=== PATIENT | female | born 1975 | race Caucasian/White ===

== ENCOUNTER 2016-06-22 10:33 | Emergency (ER) | payer BC ==
--- NOTE | 2016-06-22 11:21 | DIAGNOSTIC IMAGING REPORT ---
PROCEDURE: XR FOOT 3 VIEWS - LEFT INDICATION: TRAUMA/INJURY TECHNIQUE: Three views of the left foot. COMPARISON: None. FINDINGS: Normal mineralization. No fractures. Moderate sized plantar calcaneal spur. Normal osseous alignment. No suspicious soft-tissue calcification or radiodense foreign bodies. IMPRESSION: 1. Normal left foot.
--- NOTE | 2016-06-22 11:52 | ED ORDER SUMMARY ---
..... Patient: SOPHIA LANDAVERDE OrderSheet [facility] VisitID: [id number] [address] [place] [address] 41y, F Registration Date/Time: 06/22/2016 ORDER SHEET Weight: 136.0 kg (stated) Allergies: Amoxicillin GENERAL ORDERS: Foot 3V Left Urgent (10:56 06/22/2016 Buster AGUAYO) (Ack 10:58 Neha) (11:48 Dusty) MEDICATION ORDERS: Tdap IM 0.5 mL (NOW) (10:56 06/22/2016 Buster AGUAYO) (Ack 10:59 LWhalen R.N.) (11:04 LWhalen R.N.) IV FLUIDS: ORDER SHEET NOTES: [Electronically signed by Maris Heard R.N. (19:16 06/23/2016)] [Electronically signed by Jason Washington MD (23:14 06/23/2016)] [Electronically locked/signed by Maris Heard R.N. (19:16 06/23/2016)]
--- NOTE | 2016-06-22 11:52 | ED CLINICAL REPORT ---
Clinical Report - Physicians/Mid Levels [facility] [address] [place] [address] 06/22/2016 10:36 Patient: SOPHIA LANDAVERDE Time Seen: 10:53. Arrived- By private vehicle. Historian- patient. HISTORY OF PRESENT ILLNESS Chief Complaint: Injury to the left foot. The injury happened last night. Occurred at home. ( MMs. Kelley was ascending a ladder when she struck her left foot on the rungsof a ladder. She was painting at home.). Patient is experiencing mild pain. No other injury. REVIEW OF SYSTEMS The patient complains of pain on weight bearing. No swelling, tingling, weakness, numbness or suspected foreign body. No skin laceration. PAST HISTORY PROBLEMS: no known problems. ADDITIONAL SURGERIES: Bilateral Tubal Ligation. C section . Cholecystectomy. Right knee. [place] teeth . ADDITIONAL NOTES The nursing notes have been reviewed. PHYSICAL EXAM Vital Signs: 06/22/2016 12:13 BP: 140/72. HR: 98. RR: 20. O2 saturation: 97%. Temp: 98.6 F. 06/22/2016 10:44 BP: 147/76. HR: 108. RR: 18. O2 saturation: 97%. Temp: 98.4 F. Extremities: Left dorsal foot: moderate tenderness of the distal aspect aspect of the dorsal foot. No erythema, swelling, laceration, ecchymosis or deformity. Extremities otherwise negative. Neuro, Vascular and Tendons: Vascular status intact. Sensation intact. Motor intact. LABS, X-RAYS, AND EKG Rt Foot X-ray: (PROCEDURE: XR FOOT 3 VIEWS - LEFT INDICATION: TRAUMA/INJURY TECHNIQUE: Three views of the left foot. COMPARISON: None. FINDINGS: Normal mineralization. No fractures. Moderate sized plantar calcaneal spur. Normal osseous alignment. No suspicious soft-tissue calcification or radiodense foreign bodies. IMPRESSION: 1. Normal left foot. Electronically Final signed by:Radhika Encarnacion MD 06/22/2016 11:20:52 AM). The X-rays were interpreted by the radiologist and contemporaneously by me. PROGRESS AND PROCEDURES Course of Care: This injury did not require a Tdap but the patient was due and agreed to be immunized. Pt is able to ambulate with her own orthopedic walking boot. Disposition: Discharged. CLINICAL IMPRESSION Sprain of the metatarsophalangeal joint of the left 2nd toe, 3rd toe, 4th toe and 5th toe. INSTRUCTIONS Apply ice. Elevate affected areas above chest level. (TYLENOL OR IBUPROFEN LIMIT ACTIVITIES FOR COMFORT USE YOUR ORTHOPEDIC WALKING BOOT.). Follow-up: Follow up with your doctor in ten days if not well. (Electronically signed by Jason Washington MD 06/23/2016 23:14)
--- NOTE | 2016-06-22 11:52 | ED CLINICAL REPORT ---
Clinical Report - Physicians/Mid Levels [facility] [address] [place] [address] 06/22/2016 10:36 Patient: SOPHIA LANDAVERDE Time Seen: 10:53. Arrived- By private vehicle. Historian- patient. HISTORY OF PRESENT ILLNESS Chief Complaint: Injury to the left foot. The injury happened last night. Occurred at home. ( MMs. Kelley was ascending a ladder when she struck her left foot on the rungsof a ladder. She was painting at home.). Patient is experiencing mild pain. No other injury. REVIEW OF SYSTEMS The patient complains of pain on weight bearing. No swelling, tingling, weakness, numbness or suspected foreign body. No skin laceration. PAST HISTORY PROBLEMS: no known problems. ADDITIONAL SURGERIES: Bilateral Tubal Ligation. C section . Cholecystectomy. Right knee. [place] teeth . ADDITIONAL NOTES The nursing notes have been reviewed. PHYSICAL EXAM Vital Signs: 06/22/2016 12:13 BP: 140/72. HR: 98. RR: 20. O2 saturation: 97%. Temp: 98.6 F. 06/22/2016 10:44 BP: 147/76. HR: 108. RR: 18. O2 saturation: 97%. Temp: 98.4 F. Extremities: Left dorsal foot: moderate tenderness of the distal aspect aspect of the dorsal foot. No erythema, swelling, laceration, ecchymosis or deformity. Extremities otherwise negative. Neuro, Vascular and Tendons: Vascular status intact. Sensation intact. Motor intact. LABS, X-RAYS, AND EKG Rt Foot X-ray: (PROCEDURE: XR FOOT 3 VIEWS - LEFT INDICATION: TRAUMA/INJURY TECHNIQUE: Three views of the left foot. COMPARISON: None. FINDINGS: Normal mineralization. No fractures. Moderate sized plantar calcaneal spur. Normal osseous alignment. No suspicious soft-tissue calcification or radiodense foreign bodies. IMPRESSION: 1. Normal left foot. Electronically Final signed by:Radhika Encarnacion MD 06/22/2016 11:20:52 AM). The X-rays were interpreted by the radiologist and contemporaneously by me. PROGRESS AND PROCEDURES Course of Care: This injury did not require a Tdap but the patient was due and agreed to be immunized. Pt is able to ambulate with her own orthopedic walking boot. Disposition: Discharged. CLINICAL IMPRESSION Sprain of the metatarsophalangeal joint of the left 2nd toe, 3rd toe, 4th toe and 5th toe. INSTRUCTIONS Apply ice. Elevate affected areas above chest level. (TYLENOL OR IBUPROFEN LIMIT ACTIVITIES FOR COMFORT USE YOUR ORTHOPEDIC WALKING BOOT.). Follow-up: Follow up with your doctor in ten days if not well. (Electronically signed by Jason Washington MD 06/23/2016 23:14)
--- NOTE | 2016-06-22 11:52 | ED ORDER SUMMARY ---
..... Patient: SOPHIA LANDAVERDE OrderSheet [facility] VisitID: [id number] [address] [place] [address] 41y, F Registration Date/Time: 06/22/2016 ORDER SHEET Weight: 136.0 kg (stated) Allergies: Amoxicillin GENERAL ORDERS: Foot 3V Left Urgent (10:56 06/22/2016 Buster AGUAYO) (Ack 10:58 Neha) (11:48 Dusty) MEDICATION ORDERS: Tdap IM 0.5 mL (NOW) (10:56 06/22/2016 Buster AGUAYO) (Ack 10:59 LWhalen R.N.) (11:04 LWhalen R.N.) IV FLUIDS: ORDER SHEET NOTES: [Electronically signed by Maris Heard R.N. (19:16 06/23/2016)] [Electronically signed by Jason Washington MD (23:14 06/23/2016)] [Electronically locked/signed by Maris Heard R.N. (19:16 06/23/2016)]
--- NOTE | 2016-06-22 11:52 | ED NURSING NOTES ---
Clinical Report - Nurses [facility] [address] [place] [address] 06/22/2016 10:36 Patient: [facility] LAN[facility]VERDE [id number] Triage time 10:44 Jun 22 2016. Acuity: LEVEL 4. Chief Complaint: INJURY TO THE LEFT FOOT and LEFT SECOND TOE. PAT COMA SCORE: Pat Coma Scale: 15- eyes open spontaneously (4); best verbal response- oriented x 4 (5); best motor response- obeys commands (6). --10:49 Maris Heard R.N. 10:44 06/22/16. BP: 147/76. HR: 108. RR: 18. O2 saturation: 97%. Temp: 98.4 F. Pain level now 08/31. --10:49 Maris Heard R.N. Weight: 136 kg stated. Height/Length: 67 inches Per Patient. BMI: 47. --10:48 Maris Heard R.N. Medications None. --10:46 Maris Heard R.N. Allergies Amoxicillin. --10:47 Maris Heard R.N. History Arrived by private vehicle. Historian: patient. Accompanied by family. This occurred last night. Occurred at home. ( Was climbing a ladder and accidently kicked the hinge and it went between pinkie toe and the other toe next to it. Did break that toe in 2007 previously.). She has had trouble walking. No numbness, tingling, weakness, neck pain or back pain. Treatment ENTRY EXAMINER: Ice and splint. PAST MEDICAL HX: Tetanus status: unknown. Immunizations: up-to-date. SOCIAL HX: Never smoker. No alcohol use or drug use. SELF HARM ASSESSMENT: A self harm assessment was performed. The patient answered "no" to the question "Have you recently felt down, depressed, or hopeless?" and "Do you have thoughts of harming or killing yourself?". FALL RISK ASSESSMENT: Fall risk assessment completed. No fall risk identified. NUTRITIONAL RISK ASSESSMENT: The nutritional risk assessment revealed no deficiencies. FUNCTIONAL ASSESSMENT: Functional assessment: no impairments noted. LEARNING NEEDS ASSESSMENT: The learning needs assessment revealed no barriers. ABUSE ASSESSMENT: Abuse assessment: (yes) The patient was asked "Do you feel safe in your home?". SKIN INTEGRITY ASSESSMENT: Skin integrity risk assessment completed. No skin integrity risk identified. --10:49 Maris Heard R.N. PROBLEMS: no known problems. ADDITIONAL SURGERIES: Bilateral Tubal Ligation. C section . Cholecystectomy. Right knee. [place] teeth . --10:48 Maris Heard R.N. Interventions ID and allergy band on patient. --10:49 Maris Heard R.N. PHYSICAL ASSESSMENT Ambulatory to room. GENERAL / NEURO / PSYCH: Oriented X 4. Appears in pain. EXTREMITIES: Capillary refill is less than 2 seconds in the extremities. Extremity pulses are within normal limits. Extremities exhibit normal ROM. Pain with weight bearing. Neuro-vascular status intact to the extremity. Left foot: tenderness. SKIN: Skin intact. Skin is warm and dry. --10:49 Maris Heard R.N. NURSING PROGRESS NOTES The initial plan of care for this patient includes an assessment with efforts to address patient positioning, appropriate ambient lighting and comfortable environmental temperature; impairment of the musculoskeletal system. Cold pack applied. Extremity elevated. Reassurance given. Call light placed in reach. Side rails up x 1. Bed placed in lowest position. Brakes of bed on. --10:49 Maris Heard R.N. 11:03 06/22/2016 TDAP IM 0.5 mL given. (Lot#: [id number], expiration date: 12/29/2017, Acid Maker: sanofi pasteur). Given in the right deltoid. Allergies verified and confirmed 5 rights. Vaccine information statement provided to the patient. --11:04 Maris Heard R.N. DISPOSITION / DISCHARGE Departure time: 12:00 Jun 22 2016. Condition at departure: unchanged. No learning barriers present. Discharge instructions provided and reviewed with the patient. Reviewed warnings. Reviewed medication(s). Treatments reviewed. Reviewed referrals. Patient verbalized understanding. Written instructions provided in Welsh. The patient was discharged home and accompanied by spouse. She left the Emergency Department ambulatory and via private vehicle. Spouse driving. --12:15 Maris Heard R.N. 12:13 06/22/16. BP: 140/72. HR: 98. RR: 20. O2 saturation: 97%. Temp: 98.6 F. Pain level now 08/31. --12:15 Maris Heard R.N. Locked/Released at 06/23/2016 19:16 by Maris Heard R.N.
--- NOTE | 2016-06-22 11:52 | ED NURSING NOTES ---
Clinical Report - Nurses [facility] [address] [place] [address] 06/22/2016 10:36 [id number] Triage time 10:44 Jun 22 2016. Acuity: LEVEL 4. Chief Complaint: INJURY TO THE LEFT FOOT and LEFT SECOND TOE. PAT COMA SCORE: Pat Coma Scale: 15- eyes open spontaneously (4); best verbal response- oriented x 4 (5); best motor response- obeys commands (6). --10:49 Maris Heard R.N. 10:44 06/22/16. BP: 147/76. HR: 108. RR: 18. O2 saturation: 97%. Temp: 98.4 F. Pain level now 08/31. --10:49 Maris Heard R.N. Weight: 136 kg stated. Height/Length: 67 inches Per Patient. BMI: 47. --10:48 Maris Heard R.N. Medications None. --10:46 Maris Heard R.N. Allergies Amoxicillin. --10:47 Maris Heard R.N. History Arrived by private vehicle. Historian: patient. Accompanied by family. This occurred last night. Occurred at home. ( Was climbing a ladder and accidently kicked the hinge and it went between pinkie toe and the other toe next to it. Did break that toe in 2007 previously.). She has had trouble walking. No numbness, tingling, weakness, neck pain or back pain. 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 PAST MEDICAL HX: Tetanus status: unknown. Immunizations: up-to-date. SOCIAL HX: Never smoker. No alcohol use or drug use. SELF HARM ASSESSMENT: A self harm assessment was performed. The patient answered "no" to the question "Have you recently felt down, depressed, or hopeless?" and "Do you have thoughts of harming or killing yourself?". FALL RISK ASSESSMENT: Fall risk assessment completed. No fall risk identified. NUTRITIONAL RISK ASSESSMENT: The nutritional risk assessment revealed no deficiencies. FUNCTIONAL ASSESSMENT: Functional assessment: no impairments noted. LEARNING NEEDS ASSESSMENT: The learning needs assessment revealed no barriers. ABUSE ASSESSMENT: Abuse assessment: (yes) The patient was asked "Do you feel safe in your home?". SKIN INTEGRITY ASSESSMENT: Skin integrity risk assessment completed. No skin integrity risk identified. --10:49 Maris Heard R.N. PROBLEMS: no known problems. ADDITIONAL SURGERIES: Bilateral Tubal Ligation. C section . Cholecystectomy. Right knee. [place] teeth . --10:48 Maris Heard R.N. Interventions ID and allergy band on patient. --10:49 Maris Heard R.N. PHYSICAL ASSESSMENT Ambulatory to room. GENERAL / NEURO / PSYCH: Oriented X 4. Appears in pain. EXTREMITIES: Capillary refill is less than 2 seconds in the extremities. Extremity pulses are within normal limits. Extremities exhibit normal ROM. Pain with weight bearing. Neuro-vascular status intact to the extremity. Left foot: tenderness. SKIN: Skin intact. Skin is warm and dry. --10:49 Maris Heard R.N. NURSING PROGRESS NOTES The initial plan of care for this patient includes an assessment with efforts to address patient positioning, appropriate ambient lighting and comfortable environmental temperature; impairment of the musculoskeletal system. Cold pack applied. Extremity elevated. Reassurance given. Call light placed in reach. Side rails up x 1. Bed placed in lowest position. Brakes of bed on. --10:49 Maris Heard R.N. 11:03 06/22/2016 TDAP IM 0.5 mL given. (Lot#: [id number], expiration date: 12/29/2017, [place] Cutter: sanofi pasteur). Given in the right deltoid. Allergies verified and confirmed 5 rights. Vaccine information statement provided to the patient. --11:04 Maris Heard R.N. DISPOSITION / DISCHARGE Departure time: 12:00 Jun 22 2016. Condition at departure: unchanged. No learning barriers present. Discharge instructions provided and reviewed with the patient. Reviewed warnings. Reviewed medication(s). Treatments reviewed. Reviewed referrals. Patient verbalized understanding. Written instructions provided in [place]. The patient was discharged home and accompanied by spouse. She left the Emergency Department ambulatory and via private vehicle. Spouse driving. --12:15 Maris Heard R.N. 12:13 06/22/16. BP: 140/72. HR: 98. RR: 20. O2 saturation: 97%. Temp: 98.6 F. Pain level now 08/31. --12:15 Maris Heard R.N. Locked/Released at 06/23/2016 19:16 by Maris Heard R.N.
--- NOTE | 2016-06-23 23:15 | ED MED RECONCILIATION SUMMARY ---
Patient: SOPHIA LANDAVERDE Medication Reconciliation Report [facility] VisitID: [id number] [address] [place] [address] 41y, F Registration Date/Time: 06/22/2016 Weight: 136.0 kg Height/Length: 67 in. BMI: 47.0 ALLERGIES: Amoxicillin The patient's Home Medications are listed below: NONE. The source(s) of the original Home Medication information: Not obtained. The following Medications were given to the patient in the Emergency Department: TDAP [IM] IM 0.5 mL, administered: 06/22/2016 11:03:00 AM The following Medications were prescribed to the patient: None.
--- NOTE | 2016-06-23 23:15 | ED MAR SUMMARY ---
..... Medication Administration Record [facility] [address] [place] [address] Patient: SOPHIA LANDAVERDE Visit ID: [id number] 41y, F Weight: 136.0 kg Height/Length: 67 in BMI: 47 ALLERGIES: Amoxicillin Given 11:03 06/22/2016 Maris Heard R.N. Medication Administered: TDAP [IM], Dose: 0.5 mL IM. Medication Ordered: Tdap IM 0.5 mL (NOW).
--- NOTE | 2016-06-23 23:15 | ED DISCHARGE INSTRUCTIONS ---
Patient: SOPHIA LANDAVERDE General Instructions [facility] VisitID: [id number] [address] [place] [address] 41y, F Registration Date/Time: 06/22/2016 Sprain of the metatarsophalangeal joint of the left 2nd toe, 3rd toe, 4th toe and 5th toe. INSTRUCTIONS Apply ice. Elevate affected areas above chest level. (TYLENOL OR IBUPROFEN LIMIT ACTIVITIES FOR COMFORT USE YOUR ORTHOPEDIC WALKING BOOT.). Follow-up: Follow up with your doctor in ten days if not well. ADDITIONAL INFORMATION Sprain, Toe You have a sprain which is a stretching or tearing of the ligaments that hold a joint together. There are no broken bones. Sprains take from 36 weeks to heal. A toe sprain may be treated by taping the injured toe to the next toe ("olena taping"). This protects the injured toe and holds it in position. A minor sprain may not require any additional support. If the toenail has been severely injured, it may fall off in 12 weeks. A new one will usually start to grow back within a month. Home care The following guidelines will help you care for your injury at home: 1) Keep your leg elevated when sitting or lying down. This is very important during the first 48 hours to reduce swelling. Stay off the injured foot as much as possible until you can walk on it without pain. If needed, you may use crutches during the first week for this purpose. (Crutches can be rented at many pharmacies or surgical/orthopedic supply stores). 2) You may be given a cast shoe to wear to prevent movement in your toe. If not, you can use a sandal or any shoe that does not put pressure on the injured toe until the swelling and pain go away. If using a sandal, be careful not to strike your foot against anything, since another injury could make the sprain worse. 3) Apply an ice pack (ice cubes in a plastic bag, wrapped in a towel) over the injured area for 20 minutes every 12 hours the first day. You should continue with ice packs 34 times a day for the next two days. Continue the use of ice packs for relief of pain and swelling as needed. 4) If olena tape was applied and it becomes wet or dirty, change it. You may replace it with paper, plastic or cloth tape. Cloth tape and paper tapes must be kept dry. Keep the olena tape in place for at least four weeks. 5) You may use acetaminophen or ibuprofen to control pain, unless another pain medicine was prescribed.If you have chronic liver or kidney disease or ever had a stomach ulcer or GI bleeding, talk with your doctor before using these medicines.] 6) You may return to sports after healing, when you can run without pain. Follow-up care Follow up with your doctor or this facility as advised. Any X-rays you had today dont show any broken bones, breaks, or fractures. Sometimes fractures dont show up on the first X-ray. Bruises and sprains can sometimes hurt as much as a fracture. These injuries can take time to heal completely. If your symptoms dont improve or they get worse, talk with your doctor. You may need a repeat X-ray. When to seek medical care Get prompt medical attention if any of the following occur: Redness, warmth, or fluid drainage from your toe Pain or swelling increases Toes become cold, blue, numb, or tingly You have been given the following additional information: Sprain Toe (Electronically signed by Jason Washington MD 06/23/2016 23:14)
--- NOTE | 2016-06-23 23:15 | ED MAR SUMMARY ---
..... Medication Administration Record [facility] [address] [place] [address] Patient: SOPHIA LANDAVERDE Visit ID: [id number] 41y, F Weight: 136.0 kg Height/Length: 67 in BMI: 47 ALLERGIES: Amoxicillin Given 11:03 06/22/2016 Maris Heard R.N. Medication Administered: TDAP [IM], Dose: 0.5 mL IM. Medication Ordered: Tdap IM 0.5 mL (NOW).
--- NOTE | 2016-06-23 23:15 | ED MED RECONCILIATION SUMMARY ---
Patient: SOPHIA LANDAVERDE Medication Reconciliation Report [facility] VisitID: [id number] [address] [place] [address] 41y, F Registration Date/Time: 06/22/2016 Weight: 136.0 kg Height/Length: 67 in. BMI: 47.0 ALLERGIES: Amoxicillin The patient's Home Medications are listed below: NONE. The source(s) of the original Home Medication information: Not obtained. The following Medications were given to the patient in the Emergency Department: TDAP [IM] IM 0.5 mL, administered: 06/22/2016 11:03:00 AM The following Medications were prescribed to the patient: None.
== END 2016-06-22 12:00 | disposition home or self-care (01) ==
LOC: ED SRH 10:33
DX: S93.525A Sprain of metatarsophalangeal joint of left lesser toe(s), initial encounter (principal); W22.8XXA Striking against or struck by other objects, initial encounter; Y93.9 Activity, unspecified; Y92.009 Unspecified place in unspecified non-institutional (private) residence as the place of occurrence of the external cause; Y99.9 Unspecified external cause status; Z23 Encounter for immunization